=== PATIENT | female | born 1990 | race Caucasian/White ===

== ENCOUNTER 2020-05-21 19:26 | Inpatient (IN) | payer BC ==
--- NOTE | 2020-05-21 19:58 | RAD ---
3 views left fourth finger: 05/21/2020 COMPARISON: None available HISTORY: Injury, trauma, pain FINDINGS: There is an obliquely oriented mildly displaced fracture involving the mid/distal aspect of the fourth middle phalanx extending into the fourth distal interphalangeal joint with a degree of lateral rotation. No evidence for dislocation. No additional fracture. IMPRESSION: Fracture of the fourth middle phalanx as above.
[2020-05-21] MEDS ORDERED: Dextrose 50% Abboject 50 ML SYRINGE SLOW IVP PRN (21:08)
[2020-05-21] MEDS ORDERED: Dextrose 5% in Water 1,000 ML IV PRN (21:08)
[2020-05-21] MEDS ORDERED: Ondansetron PF 4 MG/2 ML Vial IVP PRN (21:08)
[2020-05-21] MEDS ORDERED: hydrALAZINE 20 MG/ML VIAL SLOW IVP PRN (21:08)
[2020-05-21] MEDS ORDERED: traMADol HCl 50 MG TAB PO PRN ×2 (21:12)
[2020-05-21 21:32] LABS: #Basophils 0.1 thou/uL (0.0-0.2); #Eosinphils 0.2 thou/uL (0.0-0.7); #Lymphocytes 3.9 thou/uL (1.20-3.40); #Monocytes 0.9 thou/uL (0.11-0.59); #Neutrophils 7.4 thou/uL (1.40-6.50); %Basophils 0.8 % (0.0-1.0); %Eosinophils 1.6 % (0.0-10.0); %Lymphocytes 31.2 % (21.0-51.0); %Monocytes 7.4 % (0.0-10.0); %Neutrophils 59.1 % (42.0-75.0); Hemoglobin 14.8 g/dL (12.0-16.0); Mean Corpuscular HGB CONC 33.7 g/dL (32.0-36.0); Mean Corpuscular Hemoglobin 27.3 pg (27.0-31.0); Mean Corpuscular Volume 81.1 fL (78.0-98.0); Mean Platelet Volume 10.4 fL (7.4-10.4); Platelet Count 253 thou/uL (130-400); RBC Distribution Width 12.3 % (11.5-14.5); Red Blood Cell (RBC) Count 5.41 mill/uL (4.20-5.40); White Blood Cell (WBC) Count 12.5 thou/uL (4.8-10.8)
[2020-05-21 21:48] LABS: Phosphorus 2.9 mg/dL (2.3-4.7)
[2020-05-21 21:52] LABS: ALT (SGPT) 17 U/L (8-55); AST (SGOT) 15 U/L (5-34); Albumin 4.4 g/dL (3.5-5.0); Alkaline Phosphatase 78 U/L (40-110); Anion Gap 14 mmol/L (10-20); BUN (Urea Nitrogen) 13 mg/dL (7.0-18.7); Bilirubin, Total 0.3 mg/dL (0.2-1.2); Calc. Creatinine Clearance 0 mL/min (70-130); Calcium 9.6 mg/dL (7.8-10.44); Carbon Dioxide 24 mmol/L (22-29); Chloride 105 mmol/L (98-107); Estimated GFR-MDRD Greater than 90; Globulin 3.6 g/dL (2.4-3.5); Glucose 94 mg/dL (70-105); Magnesium 1.8 mg/dL (1.6-2.6); Potassium 3.8 mmol/L (3.5-5.1); Sodium 139 mmol/L (136-145)
[2020-05-21 21:55] LABS: BHCG - Serum Negative (NEGATIVE); Pregs Control Background? CLEAR/WHITE (CLR/WHITE); Pregs Control Bar Appear? YES (CONTROL BAR)
--- NOTE | 2020-05-21 21:55 | RAD ---
Portable frontal chest radiograph: 05/21/2020 COMPARISON: None HISTORY: Preoperative patient FINDINGS: Lungs are clear. Heart and mediastinal contours appear within normal limits. IMPRESSION: No acute findings.
--- NOTE | 2020-05-21 22:01 | HP ---
TRAUMA SURGEON: Dr. Tirado. CONSULTING PHYSICIAN: Dr. Israel Abernathy. HISTORY OF PRESENT ILLNESS: The patient is a 30-year-old female who presented to the emergency department after a roping accident. She complained of left fourth digit pain. She did not fall or hit her head. There was no signs of other trauma. Her pain has been controlled with no medications. She denies any chest pain, shortness of breath, abdominal pain, nausea, vomiting. REVIEW OF SYSTEMS: All additional 10-point review of systems negative except as indicated above. PAST MEDICAL HISTORY: None. PAST SURGICAL HISTORY: Tonsillectomy and rhinoplasty. SOCIAL HISTORY: The patient denies tobacco and drug use. She drinks occasionally. MEDICATIONS: None. ALLERGIES: NO KNOWN DRUG ALLERGIES. PHYSICAL EXAMINATION: VITAL SIGNS: Temperature 98.6, pulse 99, respirations 20, oxygen saturation 99% on room air, blood pressure 144/95. PRIMARY SURVEY: Airway intact. Adequate breath sounds bilaterally. 2+ pulses bilateral in radials, femorals, and DPs. GCS 15. Gross motor sensation is intact. No lacerations, bruising, or external bleeding. The patient has minimal deformity to the left distal phalanx. SECONDARY SURVEY: HEAD: Normocephalic and atraumatic. EYES: Pupils 3 to 2, equal, round, reactive to light bilaterally. ENT: No signs of trauma. C-SPINE: No step-offs or deformities, nontender. C-collar not in place. CHEST: Nontender. No crepitus. No abrasions or ecchymosis. Equal chest movement. ABDOMEN: Soft, nontender, nondistended. PELVIS: Stable to palpation. RECTAL: Deferred. GENITOURINARY: Deferred. EXTREMITIES: She has mild deformity to the left distal 4th phalanx. No other signs of trauma in all extremities. 2+ pulses in bilateral radials, femorals, and DPs. Gross motor and sensation intact. BACK/SPINE: No signs of trauma. NEUROLOGIC: 5/5 strength in bilateral surgical product sales consultant, plantar flexion, dorsiflexion. Gross normal sensation x4 extremities. LABORATORY FINDINGS: Pending. DIAGNOSTIC FINDINGS: X-ray of the fingers of the left hand demonstrates fracture of the 4th middle phalanx as above. ASSESSMENT: 1. Status post roping accident. 2. Left 4th middle phalanx fracture, closed. PLAN: The patient will be admitted to the Trauma Service. Dr. Abernathy of Orthopedic Surgery was consulted by the emergency room provider who reported the patient could be admitted or followup in clinic and have surgery later in the week per the patient's wishes. The patient reported she would prefer to be admitted to the hospital. We will complete a preop evaluation with labs and a chest x-ray. She will also receive a COVID screen. She will have a regular diet, n.p.o. at midnight. She will have oral pain medications scheduled and as needed. Hopefully, patient will be discharged home tomorrow postoperatively if she has no additional needs. This patient will be discussed with Dr. Tirado after this dictation. Job ID: [id number]
[2020-05-21] MEDS ORDERED: Magnesium 2 GM/50 ML 2 GM in Premix Bag 1 BAG IVPB SCH (23:15)
[2020-05-21] MEDS ORDERED: PHOS-NAK 1 PKT PACK PO SCH (23:15)
[2020-05-21] MEDS: Acetaminophen 500 MG TAB PO SCH (23:19)
[2020-05-21] MEDS: Ibuprofen 600 MG TAB PO SCH (23:20)
[2020-05-22] MEDS ORDERED: Sodium Chloride 0.9% 1,000 ML IV SCH (00:01)
[2020-05-22] MEDS: Acetaminophen 500 MG TAB PO SCH ×3 (04:38→13:52)
[2020-05-22 07:08] LABS: SARS-CoV-2 MS2 Positive; SARS-CoV-2 N Gene Negative; SARS-CoV-2 S Gene Negative; SARS-CoV-2 by NAA Not Detected (NotDetected); SARS-CoV-2 orf1ab Negative
[2020-05-22] MEDS: Ibuprofen 600 MG TAB PO SCH ×2 (07:39→13:55)
[2020-05-22] MEDS ORDERED: Famotidine 20 MG TAB PO SCH (09:00)
[2020-05-22] MEDS ORDERED: Senokot S 8.6-50 MG TAB PO SCH (09:00)
--- NOTE | 2020-05-22 10:27 | CON ---
DATE OF CONSULTATION: 05/22/2020 HISTORY OF PRESENT ILLNESS: The patient is a 30-year-old right-handed female, who owns a horse. She had her reins around her left hand that horse got spooked, jerked, and twisted the left ring finger. She had immediate pain and deformity in the ring finger. The patient was seen in the emergency room, where it showed a fracture of the middle phalanx of the left ring finger, which extends into the DIP joint. The patient denies any neurologic complaints in the left finger. She has no other complaints elsewhere. PAST MEDICAL HISTORY: None. ALLERGIES: NONE. CURRENT MEDICATIONS: None. PAST SURGICAL HISTORY: Tonsillectomy and rhinoplasty. MEDICAL ILLNESSES: None. PHYSICAL EXAMINATION: The patient is afebrile. Vital signs are stable. Examination of the left hand shows that the patient has good sensation in the entire hand including the left ring finger. The end of the ring finger is rotated toward the middle finger. The patient is able to flex and extend at the DIP joint and the finger is neurovascularly intact. IMPRESSION: Displaced fracture of the middle phalanx of the left ring finger. PLAN: The patient will require open reduction and internal fixation of the middle phalanx of the left ring finger. I discussed the surgery with the patient. She will be in a splint afterward to allow the fracture to heal. The patient may be discharged after surgery and I will see her in the office approximately 1 week. Job ID: [id number]
[2020-05-22] MEDS ORDERED: PROPOFOL 200 MG/20 ML VIAL ONE (11:44)
[2020-05-22] MEDS ORDERED: Lidocaine 1% PF 5 ML VIAL ONE (11:44)
[2020-05-22] MEDS ORDERED: Fentanyl 100 MCG/2 ML VIAL ONE (17:10)
[2020-05-22] MEDS ORDERED: Bupivacaine PF 0.5% 30 ML VIAL ONE (17:33)
[2020-05-22] MEDS ORDERED: Promethazine HCl 25 MG/ML VIAL IM PRN (18:04)
[2020-05-22] MEDS ORDERED: Promethazine HCl 25 MG/ML VIAL SLOW IVP PRN (18:04)
[2020-05-22] MEDS ORDERED: Ondansetron HCl/PF 4 MG/2 ML Vial IVP PRN (18:04)
--- NOTE | 2020-05-22 18:38 | RAD ---
Intraoperative imaging of the left fourth finger: 05/22/2020 COMPARISON: 05/21/2020 HISTORY: Fracture status post ORIF FINDINGS: 2 intraoperative images are provided. These images demonstrate surgical treatment of the pr eviously noted fourth middle phalangeal fracture with 2 screws. There is anatomic alignment at the fracture site. IMPRESSION: ORIF as above.
[2020-05-22 18:55] VITALS: BP 127/85; TEMP 97.9
--- NOTE | 2020-05-22 20:28 | OP ---
DATE OF PROCEDURE: 05/22/2020 PREOPERATIVE DIAGNOSIS: Displaced middle phalanx fracture of the left ring finger. POSTOPERATIVE DIAGNOSIS: Displaced middle phalanx fracture of the left ring finger. PROCEDURE PERFORMED: Open reduction and internal fixation of middle phalanx, left ring finger. ANESTHESIA: General. DESCRIPTION OF PROCEDURE: The patient was given preoperative IV antibiotics, taken to the operating room, placed in the supine position. Satisfactory general anesthesia was performed. The left hand and upper extremity were sterilely prepped and draped in usual fashion. After exsanguination, tourniquet of the left arm was raised to 250 mmHg. A longitudinal incision was made over the dorsum of the ring finger over the area of the middle phalanx just radial to the extensor tendon. Blunt and sharp dissection was made. The extensor tendon was retracted ulnarly. The other soft tissue was retracted radially. The fracture was noted. It was significantly displaced. It was held reduced and then internally fixed with two 2.0 screws in a lag fashion. This provided good reduction and stability of the fracture. This was all performed under fluoroscopic visualization. The wound was then irrigated with antibiotic solution. The wound was then closed using 3-0 Vicryl to bring the soft tissue together over the bone and then 3-0 Rapide to close the skin. A digital block was then performed using 10 mL of 0.5% Marcaine plain. Sterile dressing was applied along with a finger splint. The tourniquet was released. The patient was awakened, extubated, and transferred to recovery room in stable condition. ESTIMATED BLOOD LOSS: None. COMPLICATIONS: None. TOURNIQUET TIME: 34 minutes. DISCHARGE MEDICATION: Tylenol No. 4 one every 4-6 hours as needed for pain, #40. FOLLOWUP: Follow up in my office in 2 weeks. Job ID: [id number]
--- NOTE | 2020-05-23 05:17 | DIS ---
DATE OF ADMISSION: 05/21/2020 DATE OF DISCHARGE: 05/22/2020 ADMISSION DIAGNOSIS: Roping accident left 4th middle phalanx fracture. DISCHARGE DIAGNOSIS: Roping accident left 4th middle phalanx fracture. CONSULTING PHYSICIAN: Dr. Abernathy of Orthopedic Surgery. PROCEDURES: The patient went to the OR on May 22, 2020, and had an open reduction and internal fixation of middle phalanx of the left ring finger. HOSPITAL COURSE: The patient is a 30-year-old female who presented to the emergency department via POV after a roping accident while riding a horse. She was found to have a left 4th middle phalanx fracture, which was closed. Dr. Abernathy asked the trauma team to admit the patient and get her ready for the OR the next day. The patient went to the OR on May 22, 2020, with Dr. Abernathy for an ORIF of the middle phalanx of the left ring finger. Postoperatively, the patient had some mild postoperative nausea, which was treated and controlled with Zofran. At the time of discharge, pain was well controlled. She was tolerating oral intake and voiding without difficulty. She was discharged to the care of her family. Her mother was at the bedside. DISCHARGE DISPOSITION: Home. DISCHARGE CONDITION: Satisfactory. PHYSICAL EXAMINATION: VITAL SIGNS: Temperature 97.9, pulse 76, respirations 16, oxygen saturation 98% on room air, blood pressure 127/85. GENERAL: Well-appearing young female, sitting up in bed with no signs of acute distress. PULMONARY: Equal chest rise and fall. Clear breath sounds bilaterally. No signs of acute respiratory distress. CARDIAC: Regular rate and rhythm. GASTROINTESTINAL: Soft, nontender, nondistended. EXTREMITIES: 2+ pulses in all extremities. Gross motor and sensation is intact. Splint to left upper extremity is clean, dry, and intact with sensation to all digits. NEUROLOGIC: GCS is 15. DISCHARGE INSTRUCTIONS: Disposition: The patient was discharged home. Activity: As tolerated. Keep wounds clean and dry. Regular diet. No PT/OT need. MEDICATIONS: Include ibuprofen and Dr. Abernathy wrote a prescription for Tylenol No. 4, that was provided by him and not the Trauma Team. FOLLOWUP APPOINTMENTS: The patient is to follow up with Dr. Abernathy in his clinic. No followup is needed with Trauma Clinic. This is a summary of the patient's hospitalization. For full details, please see her medical record in its entirety. This patient was seen and evaluated by the Trauma team during the day and discharge by myself during the night rotation. Job ID: [id number]
== END 2020-05-22 20:20 | disposition home or self-care (01) | DRG 514 ==
LOC: ERS 19:26 → 3SE 21:08
PROVIDERS: ADMIT Surgery; ATTEND Surgery
PROC: 0PSV04Z Reposition Left Finger Phalanx with Internal Fixation Device, Open Approach (ICD-10-PCS; principal; 2020-05-22)
DX: S62.625A Displaced fracture of middle phalanx of left ring finger, initial encounter for closed fracture (principal); X58.XXXA Exposure to other specified factors, initial encounter; Z20.828 Contact with and (suspected) exposure to other viral communicable diseases; R11.0 Nausea; Z90.89 Acquired absence of other organs; Y93.52 Activity, horseback riding
CPT/HCPCS: 36415; 71045; 76000; 80053; 83735; 84100; 84703; 85025; 87635; C1713; J0690; J2405; J2704; J3010; J3475; S0020; U0003

== ENCOUNTER 2020-11-17 12:05 | Emergency (ER) | payer BC ==
[2020-11-17] MEDS ORDERED: Ketorolac Tromethamine 30 MG/ML VIAL ONE (13:53)
== END 2020-11-17 14:02 | disposition home or self-care (01) ==
LOC: ERS 12:05
DX: M41.9 Scoliosis, unspecified (principal)
CPT/HCPCS: 96372; 99283; J1885

== ENCOUNTER 2020-12-06 18:16 | Emergency (ER) | payer BC ==
[2020-12-06 19:28] LABS: #Eosinphils 0.1 thou/uL (0.0-0.7); #Lymphocytes 1.9 thou/uL (1.20-3.40); #Monocytes 0.9 thou/uL (0.11-0.59); #Neutrophils 10.2 thou/uL (1.40-6.50); %Basophils 0.3 % (0.0-1.0); %Eosinophils 0.8 % (0.0-10.0); %Lymphocytes 14.7 % (21.0-51.0); %Monocytes 6.4 % (0.0-10.0); %Neutrophils 77.7 % (42.0-75.0); Hemoglobin 14.1 g/dL (12.0-16.0); Mean Corpuscular HGB CONC 34.8 g/dL (32.0-36.0); Mean Corpuscular Hemoglobin 28.9 pg (27.0-31.0); Mean Platelet Volume 11.3 fL (7.4-10.4); Platelet Count 254 thou/uL (130-400); RBC Distribution Width 12.1 % (11.5-14.5); Red Blood Cell (RBC) Count 4.87 mill/uL (4.20-5.40); White Blood Cell (WBC) Count 13.2 thou/uL (4.8-10.8)
[2020-12-06 19:46] LABS: Pregnancy Test - Urine (BHCG) Negative (Negative)
[2020-12-06 19:47] LABS: Bilirubin Negative (Negative); Blood, Urine Negative (Negative); Glucose, Urine (Dipstick) Negative (Negative); Ketone, Urine Negative (Negative); Leukocyte Negative (Negative); Nitrite Negative (Negative); Pregu Control Background? CLEAR/WHITE (CLR/WHITE); Pregu Control Bar Appear? YES (CONTROL BAR); Protein, Urine (Dipstick) Negative (Neg-Trace); Specific Gravity 1.013 (1.002-1.036)
[2020-12-06 19:50] LABS: Clarity Clear (Clear)
[2020-12-06 19:51] LABS: RBC/HPF 0-3 HPF (0-3); Squamous Epithelial 0-3 HPF (0-3); WBC/HPF 0-3 HPF (0-3)
[2020-12-06 19:52] LABS: Bacteria/HPF 1+ HPF (None Seen)
[2020-12-06 20:51] LABS: ALT (SGPT) 139 U/L (8-55); AST (SGOT) 166 U/L (5-34); Albumin 4.5 g/dL (3.5-5.0); Alkaline Phosphatase 127 U/L (40-110); Anion Gap 15 mmol/L (10-20); BUN (Urea Nitrogen) 11 mg/dL (7.0-18.7); Bilirubin, Total 1.3 mg/dL (0.2-1.2); CK (CPK) 40 U/L (29-168); Calc. Creatinine Clearance 0 mL/min (70-130); Calcium 9.4 mg/dL (7.8-10.44); Carbon Dioxide 24 mmol/L (22-29); Chloride 105 mmol/L (98-107); Globulin 3.2 g/dL (2.4-3.5); Glucose 118 mg/dL (70-105); Protein, Total 7.7 g/dL (6.0-8.3); Sodium 140 mmol/L (136-145)
[2020-12-06] MEDS ORDERED: traMADol HCl 50 MG TAB ONE (21:18)
== END 2020-12-06 21:18 | disposition home or self-care (01) ==
LOC: ERS 18:16
DX: K59.00 Constipation, unspecified (principal); R10.9 Unspecified abdominal pain; M41.9 Scoliosis, unspecified
CPT/HCPCS: 36415; 74019; 80053; 81003; 81025; 82550; 83690; 85025

== ENCOUNTER 2021-05-19 18:24 | Emergency (ER) | payer OTHER, BC ==
[~2021-05-19 18:24] MED LIST: Iopamidol-370 76% 500 ML 1 ML ONE
[2021-05-19] MEDS ORDERED: Ondansetron PF 4 MG/2 ML Vial ONE (19:05)
[2021-05-19] MEDS ORDERED: Acetaminophen 500 MG TAB ONE (19:45)
== END 2021-05-19 20:35 | disposition home or self-care (01) ==
LOC: ERS 18:24
DX: S06.0X9A Concussion with loss of consciousness of unspecified duration, initial encounter (principal); V80.010A Animal-rider injured by fall from or being thrown from horse in noncollision accident, initial encounter
CPT/HCPCS: 70450; 71260; 72125; 74177; 96374; G0390; J2405; Q9967